=== PATIENT | male | born 1955 | race Asian ===

== ENCOUNTER → 2017-08-17 | Outpatient (CLI) | payer OTHER | END | disposition home or self-care (01) | LOC: RADPV 08:33 | PROVIDERS: ATTEND Legal Medicine | DX: R13.10 Dysphagia, unspecified (principal) | CPT/HCPCS: 74230; 92611 ==

== ENCOUNTER 2017-09-07 14:47 | Inpatient (IN) | payer MEDICARE, MEDICAID ==
[~2017-09-07] VITALS: Ht 160 cm; Wt 49.4 kg
[2017-09-07] VITALS (10 sets, daily range): BP systolic 112–137; BP diastolic 51–65
[2017-09-07] MEDS ORDERED: AMLO-511 PO (15:15)
[2017-09-07] MEDS ORDERED: ATOR40TA28 PO (15:15)
[2017-09-07] MEDS ORDERED: CARV12 PO (15:15)
[2017-09-07] MEDS ORDERED: NITROGLYCERIN 2% (1 GM=INCH) PACKET TP ONE (15:15)
[2017-09-07] MEDS ORDERED: ALLO100T PO (15:15)
[2017-09-07 15:17] LABS: ABG A-A DIFF O2 351.5 mmHg (10-20.0); ABG BASE EXCESS 6.4 mmol/L (-2.0-3.0); ABG CARBOXYHEMOGLOBIN 2.9 % (0.0-1.5); ABG METHEMOGLOBIN 1.9 % (0.0-1.5); ABG OXYGEN CONTENT 6.1 mL/dL (15.0-23.0); ABG OXYGEN SATURATION 91.8 % (95.0-98.0); ABG OXYHEMOGLOBIN 87.4 % (94.0-100.0); ABG PCO2 64 mmHg (35-45); ABG PH 7.322 (7.35-7.450); PO2, ARTERIAL BG 78.6 mmHg (79.0-87.0); SOURCE, BLOOD GAS ARTERIAL; TEMPERATURE, FAHRENHEIT, BG 98.6 FAHREN (96.0-98.6)
[2017-09-07 15:18] LABS: ABG TOTAL HEMOGLOBIN 4.8 G/dL (12.0-18.0); O2 DEVICE,BLOOD GAS BIPAP (ROOM AIR); SITE, BLOOD GAS RT RADIAL
[2017-09-07 15:28] LABS: GLUCOSE,POINT OF CARE 401 MG/DL (70-110)
[2017-09-07 15:30] LABS: BASOPHILS % (AUTO) 0.5 % (0.0-2.0); EOSINOPHILS % (AUTO) 0.9 % (1.0-6.0); LYMPHOCYTES # (AUTO) 2.1 K/uL (1.0-4.8); LYMPHOCYTES % (AUTO) 7.1 % (22.0-44.0); MEAN CORPUSCULAR HGB CONC 30.9 G/dL (31.0-37.0); MEAN CORPUSCULAR VOLUME 87 fL (80-100); MONOCYTES # (AUTO) 2.2 K/uL (0.1-1.0); MONOCYTES % (AUTO) 7.6 % (2.0-9.0); NEUTROPHILS # (AUTO) 24.6 K/uL (1.8-7.7); NEUTROPHILS % (AUTO) 83.9 % (40.0-70.0); PLATELET COUNT (AUTO) 245 K/uL (150-450); RED BLOOD CELL COUNT(AUTO) 1.56 MIL/uL (4.50-5.90); RED CELL DISTRIBUTION WIDTH 18.8 % (11.5-14.5)
[2017-09-07 15:31] LABS: INR 1.1 (0.9-1.1); PROTHROMBIN TIME 11.6 SEC (9.4-11.6)
[2017-09-07 15:35] LABS: HEMATOCRIT 13.6 % (41-53); HEMOGLOBIN 4.2 g/dL (13.5-17.5)
[2017-09-07 15:44] LABS: B-TYPE NATRIURETIC PEPTIDE 567 pg/mL (0-100)
[2017-09-07 15:57] LABS: BAND NEUTROPHILS % (MANUAL) 13 % (0-5); EOSINOPHILS % (MANUAL) 1 % (1-6); LYMPHOCYTES % (MANUAL) 10 % (22-44); MONOCYTES % (MANUAL) 7 % (2-9); SEGMENTED NEUTROPHILS % 69 % (40-70); WBC MORPHOLOGY TOXIC VACUOLATION
[2017-09-07 15:58] LABS: PLATELET MORPHOLOGY COMMENT LARGE PLTS PRESENT
[2017-09-07 16:04] LABS: ALANINE AMINOTRANSFERASE 56 U/L (12-78); ALBUMIN 1.5 g/dL (3.4-5.0); ALKALINE PHOSPHATASE 155 U/L (46-116); ANION GAP 6 mmol/L (8-16); ASPARTATE AMINOTRANSFERASE 58 U/L (15-37); BILIRUBIN,TOTAL 0.2 mg/dL (0.1-1.0); CALCIUM, TOTAL 7.5 mg/dL (8.8-10.5); CARBON DIOXIDE 31 mmol/L (22-29); CHLORIDE 99 mmol/L (98-107); CREATINE KINASE MB 0.7 ng/mL (0-5); CREATINE KINASE, TOTAL 75 U/L (39-308); CREATININE 2.38 mg/dL (0.60-1.30); GLOMERULAR FILTR. RATE CALC 28 mL/min (>60); POTASSIUM 4.7 mmol/L (3.5-5.1); SODIUM SERUM 136 mmol/L (136-145); TOTAL PROTEIN, SERUM 5.8 g/dL (6.4-8.2); UREA NITROGEN, BLOOD 83 mg/dL (7-18)
[2017-09-07 16:06] LABS: GLUCOSE,RANDOM 458 mg/dL (70-110)
[2017-09-07 16:28] LABS: LACTIC ACID 2.3 mmol/L (0.4-2.0)
[2017-09-07] MEDS ORDERED: NOREPINEPHRINE 4 MG/D5%-WATER 250 ML IV ONE (16:31)
[2017-09-07] MEDS ORDERED: PROPOFOL 1000 MG/ISO-OSM 100 ML IV ONE (16:31)
[2017-09-07] MEDS ORDERED: VANCOMYCIN HCL 1 GM/D5% WATER 200 ML IV ONE (16:45)
[2017-09-07] MEDS ORDERED: PIPERACILLIN/TAZO 3.375 GM/D5W 50 ML IV ONE (16:45)
[2017-09-07] MEDS ORDERED: SODIUM CHLORIDE 0.9% 1,000 ML IV ONE (16:45)
[2017-09-07] MEDS ORDERED: NOREPINEPHRINE 4 MG/D5%-WATER 250 ML IV PRN (17:12)
[2017-09-07] MEDS: PROPOFOL 1000 MG/ISO-OSM 100 ML IV PRN ×2 (17:19→22:46)
[2017-09-07] MEDS ORDERED: ETOMIDATE 2 MG/ML 10 ML VIAL IVP ONE (17:40)
[2017-09-07] MEDS ORDERED: SUCCINYLCHOLINE CHLORIDE 20 MG/ML 10 ML VIAL IVP ONE (17:40)
[2017-09-07 17:58] LABS: ABG A-A DIFF O2 567.8 mmHg (10-20.0); ABG CARBOXYHEMOGLOBIN 2.5 % (0.0-1.5); ABG HCO3 30.4 mmol/L (22.0-26.0); ABG METHEMOGLOBIN 1.6 % (0.0-1.5); ABG OXYGEN CONTENT 5.5 mL/dL (15.0-23.0); ABG OXYGEN SATURATION 97.3 % (95.0-98.0); ABG OXYHEMOGLOBIN 93.3 % (94.0-100.0); ABG PCO2 46 mmHg (35-45); ABG PH 7.451 (7.35-7.450); PO2, ARTERIAL BG 99.7 mmHg (79.0-87.0); SOURCE, BLOOD GAS ARTERIAL; TEMPERATURE, FAHRENHEIT, BG 98.6 FAHREN (96.0-98.6)
[2017-09-07 18:03] LABS: O2 DEVICE,BLOOD GAS VENTILATOR (ROOM AIR); PEEP,BG 5 cm H2O; SITE, BLOOD GAS RT RADIAL; VT, ABG 450 ml
[2017-09-07] MEDS ORDERED: PANTOPRAZOLE SODIUM 80 MG in SODIUM CHLORIDE 0.9% 100 ML IV SCH (18:45)
[2017-09-07] MEDS ORDERED: PANTOPRAZOLE SODIUM 40 MG/VIAL IVP ONE (18:45)
[2017-09-07] MEDS ORDERED: MAGNESIUM HYDROXIDE SUSPENSION 30 ML UDCUP PO PRN (19:00)
[2017-09-07] MEDS ORDERED: ACETAMINOPHEN 325 MG TABLET PO PRN (19:00)
[2017-09-07] MEDS ORDERED: BISACODYL 10 MG RECTAL RECTAL SUPPOSITORY PR PRN (19:00)
[2017-09-07] MEDS ORDERED: ONDANSETRON HCL 4 MG/2 ML VIAL IVP PRN (19:00)
[2017-09-07] MEDS ORDERED: 0.9% SODIUM CHLORIDE 10 ML SYRINGE IVP PRN (19:00)
[2017-09-07] MEDS ORDERED: POVIDONE-IODINE 10% 120 ML SOLUTION TP ONE (19:14)
[2017-09-07] MEDS ORDERED: VANCOMYCIN HCL 1 GM/D5% WATER 200 ML IV PRN (20:15)
[2017-09-07 20:24] LABS: GLUCOSE,POINT OF CARE 400 MG/DL (70-110)
[2017-09-07] MEDS ORDERED: INSULIN REGULAR, HUMAN 100 UNITS/ML IVP ONE (20:30)
[2017-09-07 23:55] LABS: APPEARANCE,URINE CLOUDY (CLEAR); BILIRUBIN,URINE NEGATIVE (NEGATIVE); GLUCOSE, URINE (UA) 500 mg/dL (NEGATIVE); KETONES,URINE NEGATIVE (NEGATIVE); LEUKOCYTE ESTERASE ,URINE NEGATIVE (NEGATIVE); NITRATE,URINE NEGATIVE (NEGATIVE); OCCULT BLOOD,URINE SMALL (NEGATIVE); PH,URINE 5.5 (5.0-8.0); PROTEIN,URINE SEE CONFIRM (NEGATIVE); UROBILINOGEN,URINE 0.2 mg/dL (<=1.0)
[2017-09-08] VITALS (17 sets, daily range): BP systolic 93–158; BP diastolic 43–75
[2017-09-08 00:09] LABS: SULFOSALICYLIC ACID,URINE 2+ (Negative)
[2017-09-08 00:10] LABS: AMORPHOUS SEDIMENT,UR Few /LPF (None Seen); BACTERIA,URINE Rare /HPF (None Seen)
[2017-09-08] MEDS ORDERED: NOREPINEPHRINE 4 MG/D5%-WATER 250 ML IV PRN (00:12)
[2017-09-08] MEDS ORDERED: SODIUM CHLORIDE 0.9% 250 ML IV ONE (01:22)
[2017-09-08] MEDS: PIPERACILLIN SODIUM/TAZOBACTAM 2.25 GM in DEXTROSE 5%-WATER 50 ML IV SCH ×2 (02:08→14:44)
[2017-09-08] MEDS: PROPOFOL 1000 MG/ISO-OSM 100 ML IV PRN ×3 (03:33→14:53)
[2017-09-08 06:52] LABS: BASOPHILS % (AUTO) 1.1 % (0.0-2.0); EOSINOPHILS % (AUTO) 1.6 % (1.0-6.0); LYMPHOCYTES # (AUTO) 0.4 K/uL (1.0-4.8); MEAN CORPUSCULAR HEMOGLOBIN 28.9 pg (26.0-34.0); MEAN CORPUSCULAR HGB CONC 34.4 G/dL (31.0-37.0); MEAN CORPUSCULAR VOLUME 84 fL (80-100); MONOCYTES # (AUTO) 0.9 K/uL (0.1-1.0); MONOCYTES % (AUTO) 7.2 % (2.0-9.0); NEUTROPHILS # (AUTO) 10.8 K/uL (1.8-7.7); PLATELET COUNT (AUTO) 122 K/uL (150-450); RED BLOOD CELL COUNT(AUTO) 2.41 MIL/uL (4.50-5.90); RED CELL DISTRIBUTION WIDTH 15.1 % (11.5-14.5)
[2017-09-08 06:55] LABS: NEUTROPHILS % (AUTO) 87.1 % (40.0-70.0)
[2017-09-08 06:56] LABS: PLATELET MORPHOLOGY COMMENT LARGE PLTS PRESENT
[2017-09-08 07:05] LABS: LACTIC ACID 1.4 mmol/L (0.4-2.0)
[2017-09-08 07:18] LABS: ALANINE AMINOTRANSFERASE 43 U/L (12-78); ALBUMIN 1.3 g/dL (3.4-5.0); ALKALINE PHOSPHATASE 95 U/L (46-116); ANION GAP 9 mmol/L (8-16); ASPARTATE AMINOTRANSFERASE 46 U/L (15-37); BILIRUBIN,TOTAL 0.4 mg/dL (0.1-1.0); CALCIUM, TOTAL 7.5 mg/dL (8.8-10.5); CARBON DIOXIDE 28 mmol/L (22-29); CHLORIDE 100 mmol/L (98-107); CREATINE KINASE, TOTAL 63 U/L (39-308); CREATININE 2.56 mg/dL (0.60-1.30); FREE T4 (FREE THYROXINE) 1.02 ng/dL (0.76-1.46); GLOMERULAR FILTR. RATE CALC 26 mL/min (>60); GLUCOSE,RANDOM 271 mg/dL (70-110); HDL CHOLESTEROL 18 mg/dL (40-60); POTASSIUM 4.4 mmol/L (3.5-5.1); SODIUM SERUM 137 mmol/L (136-145); THYROID STIMULATING HORMONE 4.19 uIU/mL (0.36-3.74); TOTAL PROTEIN, SERUM 4.9 g/dL (6.4-8.2); TRIGLYCERIDES 121 mg/dL (15-150); UREA NITROGEN, BLOOD 91 mg/dL (7-18)
[2017-09-08 07:32] LABS: CHOL/HDL RATIO 2.8 (4.2-7.3); CHOLESTEROL 51 mg/dL (131-200); LDL CHOL (CALC.) 9 mg/dL (0-130)
[2017-09-08 07:42] LABS: HEMOGLOBIN A1C 5.6 % (4.5-6.2)
[2017-09-08] MEDS ORDERED: PANTOPRAZOLE SODIUM 40 MG/VIAL IVP SCH (09:00)
[2017-09-08] MEDS: PANTOPRAZOLE SODIUM 80 MG in SODIUM CHLORIDE 0.9% 100 ML IV SCH ×2 (09:25→18:01)
[2017-09-08] MEDS: VITAMIN B COMP/VIT C/FOLIC ACID CAPSULE PO SCH (09:25)
[2017-09-08 10:14] LABS: FOLATE SERUM 9.4 ng/mL (5.4-)
[2017-09-08] MEDS ORDERED: SODIUM CHLORIDE 0.9% 2,000 ML IV ONE (10:21)
[2017-09-08 11:12] LABS: HEMOGLOBIN 7.4 g/dL (13.5-17.5)
[2017-09-08] MEDS ORDERED: MANNITOL 25%-12.5 GM/50 ML VIAL IVP PRN (11:30)
[2017-09-08] MEDS ORDERED: DEXTROSE 50%-WATER 25 GM/50 ML SYRINGE IVP PRN (12:15)
[2017-09-08 15:42] LABS: ABG A-A DIFF O2 262.9 mmHg (10-20.0); ABG BASE EXCESS 9.3 mmol/L (-2.0-3.0); ABG CARBOXYHEMOGLOBIN 0.9 % (0.0-1.5); ABG HCO3 32.5 mmol/L (22.0-26.0); ABG METHEMOGLOBIN 0.1 % (0.0-1.5); ABG OXYGEN CONTENT 11.5 mL/dL (15.0-23.0); ABG OXYGEN SATURATION 99.2 % (95.0-98.0); ABG OXYHEMOGLOBIN 98.2 % (94.0-100.0); ABG PCO2 32 mmHg (35-45); ABG TOTAL HEMOGLOBIN 8.1 G/dL (12.0-18.0); PO2, ARTERIAL BG 129.5 mmHg (79.0-87.0); SOURCE, BLOOD GAS ARTERIAL; TEMPERATURE, FAHRENHEIT, BG 98.6 FAHREN (96.0-98.6)
[2017-09-08 15:43] LABS: ABG PH 7.599 (7.35-7.450); O2 DEVICE,BLOOD GAS VENTILATOR (ROOM AIR); PEEP,BG 5 cm H2O; SITE, BLOOD GAS RT RADIAL; VT, ABG 450 ml
[2017-09-08 17:23] LABS: GLUCOSE,POINT OF CARE 104 MG/DL (70-110)
[2017-09-08] MEDS ORDERED: MANNITOL 25%-12.5 GM/50 ML VIAL IVP ONE (17:50)
[2017-09-08 18:44] LABS: HEMOGLOBIN 7.2 g/dL (13.5-17.5)
[2017-09-08 18:49] LABS: HEMATOCRIT 20.4 % (41-53)
[2017-09-09] VITALS: BP 156/71
[2017-09-09] MEDS: PIPERACILLIN SODIUM/TAZOBACTAM 2.25 GM in DEXTROSE 5%-WATER 50 ML IV SCH ×4 (00:28→23:09)
[2017-09-09] MEDS: PROPOFOL 1000 MG/ISO-OSM 100 ML IV PRN ×3 (02:44→19:59)
[2017-09-09 03:05] LABS: BASOPHILS % (AUTO) 1.2 % (0.0-2.0); EOSINOPHILS % (AUTO) 4.5 % (1.0-6.0); HEMOGLOBIN 7.8 g/dL (13.5-17.5); LYMPHOCYTES # (AUTO) 0.4 K/uL (1.0-4.8); LYMPHOCYTES % (AUTO) 5.4 % (22.0-44.0); MEAN CORPUSCULAR HEMOGLOBIN 29.3 pg (26.0-34.0); MEAN CORPUSCULAR HGB CONC 35.2 G/dL (31.0-37.0); MEAN CORPUSCULAR VOLUME 83 fL (80-100); MONOCYTES # (AUTO) 0.7 K/uL (0.1-1.0); MONOCYTES % (AUTO) 8.3 % (2.0-9.0); NEUTROPHILS # (AUTO) 6.5 K/uL (1.8-7.7); NEUTROPHILS % (AUTO) 80.6 % (40.0-70.0); PLATELET COUNT (AUTO) 132 K/uL (150-450); RED BLOOD CELL COUNT(AUTO) 2.64 MIL/uL (4.50-5.90); RED CELL DISTRIBUTION WIDTH 15.6 % (11.5-14.5)
[2017-09-09 03:17] LABS: ANION GAP 5 mmol/L (8-16); CALCIUM, TOTAL 7.8 mg/dL (8.8-10.5); CARBON DIOXIDE 32 mmol/L (22-29); CHLORIDE 101 mmol/L (98-107); CREATINE KINASE, TOTAL 51 U/L (39-308); CREATININE 1.45 mg/dL (0.60-1.30); GLOMERULAR FILTR. RATE CALC 50 mL/min (>60); GLUCOSE,RANDOM 97 mg/dL (70-110); POTASSIUM 3.5 mmol/L (3.5-5.1); SODIUM SERUM 138 mmol/L (136-145); UREA NITROGEN, BLOOD 35 mg/dL (7-18); VANCOMYCIN,RANDOM 10.9 mcg/mL (25.0-50.0)
[2017-09-09] MEDS ORDERED: SODIUM CHLORIDE 0.9% 100 ML ONE (03:58)
[2017-09-09 04:00] VITALS: BP_SYST 166; BP_DIAS 59; BP_DIAS 71
[2017-09-09] MEDS: PANTOPRAZOLE SODIUM 80 MG in SODIUM CHLORIDE 0.9% 100 ML IV SCH ×2 (04:49→15:27)
[2017-09-09 06:47] LABS: GLUCOSE,POINT OF CARE 96 MG/DL (70-110)
[2017-09-09 06:48] LABS: GLUCOSE,POINT OF CARE 94 MG/DL (70-110)
[2017-09-09] MEDS ORDERED: SODIUM CHLORIDE 0.9% 1,000 ML IV ONE (07:36)
[2017-09-09 08:00] VITALS: BP 162/66
[2017-09-09] MEDS ORDERED: VANCOMYCIN HCL 750 MG in DEXTROSE 5%-WATER 250 ML IV ONE (08:00)
[2017-09-09] MEDS: VITAMIN B COMP/VIT C/FOLIC ACID CAPSULE PO SCH (09:02)
[2017-09-09 09:49] LABS: ABG A-A DIFF O2 49.8 mmHg (10-20.0); ABG BASE EXCESS 5.1 mmol/L (-2.0-3.0); ABG CARBOXYHEMOGLOBIN 0.3 % (0.0-1.5); ABG HCO3 28.9 mmol/L (22.0-26.0); ABG METHEMOGLOBIN 0.2 % (0.0-1.5); ABG OXYGEN CONTENT 12.3 mL/dL (15.0-23.0); ABG OXYGEN SATURATION 99.5 % (95.0-98.0); ABG PCO2 33 mmHg (35-45); ABG PH 7.537 (7.35-7.450); ABG TOTAL HEMOGLOBIN 8.5 G/dL (12.0-18.0); PO2, ARTERIAL BG 197.7 mmHg (79.0-87.0); SOURCE, BLOOD GAS ARTERIAL; TEMPERATURE, FAHRENHEIT, BG 97.5 FAHREN (96.0-98.6)
[2017-09-09 09:50] LABS: O2 DEVICE,BLOOD GAS VENTILATOR (ROOM AIR); PEEP,BG 5 cm H2O; SITE, BLOOD GAS RT RADIAL; VT, ABG 450 ml
[2017-09-09 11:53] LABS: GLUCOSE,POINT OF CARE 106 MG/DL (70-110)
[2017-09-09 12:00] VITALS: BP 165/61
[2017-09-09] MEDS ORDERED: PROPOFOL 1% 20 ML VIAL IVP ONE (12:00)
[2017-09-09] MEDS ORDERED: LIDOCAINE HCL/PF 2% 5 ML VIAL INJ ONE (12:00)
[2017-09-09] MEDS: HydrALAZINE HCL 20 MG/ML VIAL IVP PRN (15:28)
[2017-09-09 16:00] VITALS: BP 109/49
[2017-09-09 18:27] LABS: HEMATOCRIT 21.6 % (41-53); HEMOGLOBIN 7.6 g/dL (13.5-17.5)
[2017-09-09 20:00] VITALS: BP 105/55
[2017-09-09 20:02] LABS: GLUCOSE,POINT OF CARE 109 MG/DL (70-110)
[2017-09-09] MEDS: INSULIN REGULAR, HUMAN 100 UNITS/ML SQ PRN (23:28)
[2017-09-09] MEDS ORDERED: DEXTROSE 5%-WATER 250 ML IV ONE (23:33)
[2017-09-10] VITALS: BP 126/59
[2017-09-10] MEDS: PANTOPRAZOLE SODIUM 80 MG in SODIUM CHLORIDE 0.9% 100 ML IV SCH ×3 (00:41→21:09)
[2017-09-10] MEDS: PROPOFOL 1000 MG/ISO-OSM 100 ML IV PRN ×2 (03:48→08:37)
[2017-09-10 04:00] VITALS: BP 108/60
[2017-09-10] MEDS: INSULIN REGULAR, HUMAN 100 UNITS/ML SQ PRN (05:45)
[2017-09-10 06:05] LABS: BASOPHILS % (AUTO) 0.8 % (0.0-2.0); EOSINOPHILS % (AUTO) 3.5 % (1.0-6.0); HEMOGLOBIN 7.4 g/dL (13.5-17.5); LYMPHOCYTES # (AUTO) 0.3 K/uL (1.0-4.8); LYMPHOCYTES % (AUTO) 5.2 % (22.0-44.0); MEAN CORPUSCULAR HEMOGLOBIN 30.4 pg (26.0-34.0); MEAN CORPUSCULAR HGB CONC 35.7 G/dL (31.0-37.0); MEAN CORPUSCULAR VOLUME 85 fL (80-100); MONOCYTES # (AUTO) 0.4 K/uL (0.1-1.0); MONOCYTES % (AUTO) 6.5 % (2.0-9.0); NEUTROPHILS # (AUTO) 5.1 K/uL (1.8-7.7); PLATELET COUNT (AUTO) 139 K/uL (150-450); RED BLOOD CELL COUNT(AUTO) 2.43 MIL/uL (4.50-5.90)
[2017-09-10 06:18] LABS: CALCIUM, TOTAL 7.5 mg/dL (8.8-10.5); CREATININE 2.1 mg/dL (0.60-1.30); POTASSIUM 3.7 mmol/L (3.5-5.1)
[2017-09-10 06:22] LABS: GLUCOSE,POINT OF CARE 79 MG/DL (70-110)
[2017-09-10 06:22] LABS: GLUCOSE,POINT OF CARE 76 MG/DL (70-110)
[2017-09-10 06:22] LABS: GLUCOSE,POINT OF CARE 77 MG/DL (70-110)
[2017-09-10 08:00] VITALS: BP 116/60
[2017-09-10] MEDS: PIPERACILLIN SODIUM/TAZOBACTAM 2.25 GM in DEXTROSE 5%-WATER 50 ML IV SCH ×3 (08:06→22:50)
[2017-09-10] MEDS: VITAMIN B COMP/VIT C/FOLIC ACID CAPSULE PO SCH (08:35)
[2017-09-10] MEDS: LORazepam 2 MG/ML VIAL IVP PRN (14:33)
[2017-09-10 15:48] LABS: GLUCOSE,POINT OF CARE 69 MG/DL (70-110)
[2017-09-10 15:48] LABS: GLUCOSE,POINT OF CARE 151 MG/DL (70-110)
[2017-09-10 18:27] LABS: GLUCOSE,POINT OF CARE 115 MG/DL (70-110)
[2017-09-10 19:50] LABS: SOURCE, BLOOD GAS ARTERIAL; TEMPERATURE, FAHRENHEIT, BG 98.6 FAHREN (96.0-98.6)
[2017-09-10 19:53] LABS: ABG A-A DIFF O2 74.7 mmHg (10-20.0); ABG BASE EXCESS 5.7 mmol/L (-2.0-3.0); ABG CARBOXYHEMOGLOBIN 0.9 % (0.0-1.5); ABG HCO3 29.3 mmol/L (22.0-26.0); ABG METHEMOGLOBIN 0.4 % (0.0-1.5); ABG OXYGEN CONTENT 11.6 mL/dL (15.0-23.0); ABG OXYGEN SATURATION 99.1 % (95.0-98.0); ABG OXYHEMOGLOBIN 97.8 % (94.0-100.0); ABG PCO2 37 mmHg (35-45); ABG PH 7.512 (7.35-7.450); ABG TOTAL HEMOGLOBIN 8.2 G/dL (12.0-18.0); PO2, ARTERIAL BG 132.3 mmHg (79.0-87.0)
[2017-09-10 19:54] LABS: O2 DEVICE,BLOOD GAS VENTILATOR (ROOM AIR); SITE, BLOOD GAS RT RADIAL; VENT MODE, BG SPONTANEOUS (ROOM AIR)
[2017-09-10 19:55] LABS: PEEP,BG 5 cm H2O; PRESSURE SUPPORT, BG 8 cm H2O; SPONTANEOUS VT, BG 300 ml
[2017-09-10 20:00] VITALS: BP 157/74
[2017-09-10] MEDS: HydrALAZINE HCL 20 MG/ML VIAL IVP PRN (22:22)
[2017-09-11] VITALS: BP 149/68
[2017-09-11] MEDS: INSULIN REGULAR, HUMAN 100 UNITS/ML SQ PRN ×2 (00:18→05:59)
[2017-09-11 00:57] LABS: GLUCOSE,POINT OF CARE 145 MG/DL (70-110)
[2017-09-11 04:00] VITALS: BP 147/70
[2017-09-11] MEDS: PROPOFOL 1000 MG/ISO-OSM 100 ML IV PRN ×3 (04:23→20:20)
[2017-09-11 05:21] LABS: CALCIUM, TOTAL 7.6 mg/dL (8.8-10.5); CREATININE 1.61 mg/dL (0.60-1.30); POTASSIUM 3.3 mmol/L (3.5-5.1); VANCOMYCIN,RANDOM 16.6 mcg/mL (25.0-50.0)
[2017-09-11 05:23] LABS: BASOPHILS % (AUTO) 0.6 % (0.0-2.0); EOSINOPHILS % (AUTO) 4.1 % (1.0-6.0); HEMATOCRIT 22.5 % (41-53); HEMOGLOBIN 7.8 g/dL (13.5-17.5); LYMPHOCYTES # (AUTO) 0.3 K/uL (1.0-4.8); LYMPHOCYTES % (AUTO) 4.1 % (22.0-44.0); MEAN CORPUSCULAR HEMOGLOBIN 29.8 pg (26.0-34.0); MEAN CORPUSCULAR HGB CONC 34.9 G/dL (31.0-37.0); MEAN CORPUSCULAR VOLUME 85 fL (80-100); MONOCYTES # (AUTO) 0.5 K/uL (0.1-1.0); MONOCYTES % (AUTO) 6.1 % (2.0-9.0); NEUTROPHILS # (AUTO) 6.9 K/uL (1.8-7.7); NEUTROPHILS % (AUTO) 85.1 % (40.0-70.0); PLATELET COUNT (AUTO) 157 K/uL (150-450); RED BLOOD CELL COUNT(AUTO) 2.63 MIL/uL (4.50-5.90); RED CELL DISTRIBUTION WIDTH 16.2 % (11.5-14.5)
[2017-09-11] MEDS: PANTOPRAZOLE SODIUM 80 MG in SODIUM CHLORIDE 0.9% 100 ML IV SCH ×2 (06:17→15:23)
[2017-09-11 08:00] VITALS: BP 111/54
[2017-09-11] MEDS ORDERED: POTASSIUM CHLORIDE 10% 40 MEQ/30 ML LIQUID UDCUP PEG ONE ×2 (08:15→08:30)
[2017-09-11 08:28] LABS: GLUCOSE,POINT OF CARE 163 MG/DL (70-110)
[2017-09-11] MEDS: VITAMIN B COMP/VIT C/FOLIC ACID CAPSULE PO SCH (08:43)
[2017-09-11] MEDS: PIPERACILLIN SODIUM/TAZOBACTAM 2.25 GM in DEXTROSE 5%-WATER 50 ML IV SCH ×2 (08:43→15:23)
[2017-09-11] MEDS: EPOETIN ALFA 10,000 UNITS/ML VIAL SQ SCH (09:15)
[2017-09-11 12:00] VITALS: BP 169/92
[2017-09-11 12:32] LABS: GLUCOSE,POINT OF CARE 126 MG/DL (70-110)
[2017-09-11] MEDS ORDERED: SODIUM CHLORIDE 0.9% 250 ML IV ONE (12:32)
[2017-09-11] MEDS ORDERED: VANCOMYCIN HCL 1 GM/D5% WATER 200 ML IV ONE (13:00)
[2017-09-11 13:22] LABS: C.DIFF GDH ANTIGEN, Stool Negative (Negative); C.DIFF TOXINS A&B, Stool Negative (Negative)
[2017-09-11 16:00] VITALS: BP 132/80
[2017-09-11 17:29] LABS: CALCIUM, TOTAL 7.7 mg/dL (8.8-10.5); CREATININE 1.91 mg/dL (0.60-1.30); POTASSIUM 3.5 mmol/L (3.5-5.1)
[2017-09-11 20:00] VITALS: BP 144/66
[2017-09-11 21:18] LABS: GLUCOSE,POINT OF CARE 136 MG/DL (70-110)
[2017-09-12] VITALS: BP 124/60
[2017-09-12 00:07] LABS: GLUCOSE,POINT OF CARE 147 MG/DL (70-110)
[2017-09-12] MEDS: INSULIN REGULAR, HUMAN 100 UNITS/ML SQ PRN (00:15)
[2017-09-12] MEDS: PANTOPRAZOLE SODIUM 80 MG in SODIUM CHLORIDE 0.9% 100 ML IV SCH ×3 (01:10→23:16)
[2017-09-12] MEDS: AMPICILLIN SODIUM/SULBACTAM NA 3 GM in SODIUM CHLORIDE 0.9% 100 ML IV SCH ×2 (02:39→14:24)
[2017-09-12 04:00] VITALS: BP 133/65
[2017-09-12 04:52] LABS: GLUCOSE,POINT OF CARE 101 MG/DL (70-110)
[2017-09-12 05:25] LABS: BASOPHILS % (AUTO) 0.6 % (0.0-2.0); EOSINOPHILS % (AUTO) 6.8 % (1.0-6.0); HEMATOCRIT 21.6 % (41-53); HEMOGLOBIN 7.5 g/dL (13.5-17.5); LYMPHOCYTES # (AUTO) 0.2 K/uL (1.0-4.8); LYMPHOCYTES % (AUTO) 2.8 % (22.0-44.0); MEAN CORPUSCULAR HEMOGLOBIN 29.4 pg (26.0-34.0); MEAN CORPUSCULAR HGB CONC 34.7 G/dL (31.0-37.0); MEAN CORPUSCULAR VOLUME 85 fL (80-100); MONOCYTES # (AUTO) 0.4 K/uL (0.1-1.0); MONOCYTES % (AUTO) 5.3 % (2.0-9.0); NEUTROPHILS # (AUTO) 6.8 K/uL (1.8-7.7); NEUTROPHILS % (AUTO) 84.5 % (40.0-70.0); PLATELET COUNT (AUTO) 157 K/uL (150-450); RED BLOOD CELL COUNT(AUTO) 2.55 MIL/uL (4.50-5.90); RED CELL DISTRIBUTION WIDTH 15.9 % (11.5-14.5)
[2017-09-12 05:34] LABS: CALCIUM, TOTAL 7.7 mg/dL (8.8-10.5); CREATININE 2.19 mg/dL (0.60-1.30); MAGNESIUM 1.5 mg/dL (1.80-2.40); PHOSPHORUS 4.5 mg/dL (2.5-4.9); POTASSIUM 3.4 mmol/L (3.5-5.1)
[2017-09-12 06:03] LABS: % IRON SATURATION 19.7 % (30-44)
[2017-09-12] MEDS: PROPOFOL 1000 MG/ISO-OSM 100 ML IV PRN ×3 (06:20→23:20)
[2017-09-12] MEDS ORDERED: MAGNESIUM SULFATE 2 GM in DEXTROSE 5%-WATER 50 ML IV ONE ×2 (07:00→09:30)
[2017-09-12 08:00] VITALS: BP 136/65
[2017-09-12] MEDS: VITAMIN B COMP/VIT C/FOLIC ACID CAPSULE PO SCH (08:39)
[2017-09-12] MEDS ORDERED: POTASSIUM CHLORIDE 10 MEQ ER TABLET PO ONE (09:30)
[2017-09-12] MEDS: LORazepam 2 MG/ML VIAL IVP PRN (09:56)
[2017-09-12] MEDS: SOD FERRIC GLUC COMPLX/SUCROSE 125 MG in SODIUM CHLORIDE 0.9% 100 ML IV SCH (11:18)
[2017-09-12 12:00] VITALS: BP 105/75
[2017-09-12 16:00] VITALS: BP 129/60
[2017-09-12 20:00] VITALS: BP 137/59
[2017-09-13] VITALS: BP 113/57
[2017-09-13] MEDS: AMPICILLIN SODIUM/SULBACTAM NA 3 GM in SODIUM CHLORIDE 0.9% 100 ML IV SCH ×2 (02:50→14:35)
[2017-09-13 04:00] VITALS: BP 155/75
[2017-09-13 04:07] LABS: GLUCOSE,POINT OF CARE 97 MG/DL (70-110)
[2017-09-13 04:08] LABS: GLUCOSE,POINT OF CARE 138 MG/DL (70-110)
[2017-09-13 04:08] LABS: GLUCOSE,POINT OF CARE 129 MG/DL (70-110)
[2017-09-13 05:26] LABS: BASOPHILS % (AUTO) 0.5 % (0.0-2.0); EOSINOPHILS % (AUTO) 7.2 % (1.0-6.0); HEMATOCRIT 21.8 % (41-53); HEMOGLOBIN 7.6 g/dL (13.5-17.5); LYMPHOCYTES # (AUTO) 0.3 K/uL (1.0-4.8); LYMPHOCYTES % (AUTO) 3.9 % (22.0-44.0); MEAN CORPUSCULAR HEMOGLOBIN 29.4 pg (26.0-34.0); MEAN CORPUSCULAR HGB CONC 34.7 G/dL (31.0-37.0); MEAN CORPUSCULAR VOLUME 85 fL (80-100); MONOCYTES # (AUTO) 0.5 K/uL (0.1-1.0); MONOCYTES % (AUTO) 6.7 % (2.0-9.0); NEUTROPHILS # (AUTO) 6.7 K/uL (1.8-7.7); NEUTROPHILS % (AUTO) 81.7 % (40.0-70.0); PLATELET COUNT (AUTO) 165 K/uL (150-450); RED BLOOD CELL COUNT(AUTO) 2.58 MIL/uL (4.50-5.90)
[2017-09-13 05:38] LABS: GLUCOSE,POINT OF CARE 124 MG/DL (70-110)
[2017-09-13 05:49] LABS: ALBUMIN 1.2 g/dL (3.4-5.0); BILIRUBIN,TOTAL 0.3 mg/dL (0.1-1.0); CALCIUM, TOTAL 7.7 mg/dL (8.8-10.5); CREATININE 2.66 mg/dL (0.60-1.30); POTASSIUM 3.5 mmol/L (3.5-5.1); TOTAL PROTEIN, SERUM 5.8 g/dL (6.4-8.2)
[2017-09-13 06:59] LABS: MAGNESIUM 2.1 mg/dL (1.80-2.40); PHOSPHORUS 5.3 mg/dL (2.5-4.9)
[2017-09-13] MEDS: PROPOFOL 1000 MG/ISO-OSM 100 ML IV PRN (07:33)
[2017-09-13 08:00] VITALS: BP 138/70
[2017-09-13 08:41] LABS: ABG A-A DIFF O2 26.1 mmHg (10-20.0); ABG BASE EXCESS -0.2 mmol/L (-2.0-3.0); ABG CARBOXYHEMOGLOBIN 0.9 % (0.0-1.5); ABG HCO3 24.6 mmol/L (22.0-26.0); ABG METHEMOGLOBIN 0.4 % (0.0-1.5); ABG OXYGEN SATURATION 99.6 % (95.0-98.0); ABG OXYHEMOGLOBIN 98.3 % (94.0-100.0); ABG PCO2 29 mmHg (35-45); ABG PH 7.511 (7.35-7.450); ABG TOTAL HEMOGLOBIN 8.4 G/dL (12.0-18.0); PO2, ARTERIAL BG 153.6 mmHg (79.0-87.0); SOURCE, BLOOD GAS ARTERIAL; TEMPERATURE, FAHRENHEIT, BG 98.6 FAHREN (96.0-98.6)
[2017-09-13 08:44] LABS: O2 DEVICE,BLOOD GAS VENTILATOR (ROOM AIR); SITE, BLOOD GAS RT RADIAL; VT, ABG 400 ml
[2017-09-13 08:45] LABS: PEEP,BG 5 cm H2O
[2017-09-13] MEDS ORDERED: SODIUM CHLORIDE 0.9% 2,000 ML IV ONE (09:14)
[2017-09-13] MEDS: SOD FERRIC GLUC COMPLX/SUCROSE 125 MG in SODIUM CHLORIDE 0.9% 100 ML IV SCH (09:21)
[2017-09-13] MEDS: VITAMIN B COMP/VIT C/FOLIC ACID CAPSULE PO SCH (09:21)
[2017-09-13] MEDS: EPOETIN ALFA 10,000 UNITS/ML VIAL SQ SCH (09:21)
[2017-09-13] MEDS: PANTOPRAZOLE SODIUM 80 MG in SODIUM CHLORIDE 0.9% 100 ML IV SCH (10:31)
[2017-09-13] MEDS ORDERED: MANNITOL 25%-12.5 GM/50 ML VIAL IVP PRN (10:45)
[2017-09-13] MEDS ORDERED: ALBUMIN HUMAN 25%-12.5GM/50ML IV BOTTLE IV PRN (10:45)
[2017-09-13 12:00] VITALS: BP 149/69
[2017-09-13] MEDS: LORazepam 2 MG/ML VIAL IVP PRN ×2 (13:00→15:23)
[2017-09-13] MEDS: HydrALAZINE HCL 20 MG/ML VIAL IVP PRN (15:23)
[2017-09-13 16:00] VITALS: BP 154/69
[2017-09-13] MEDS ORDERED: METOPROLOL TARTRATE 25 MG TABLET PO ONE (16:15)
[2017-09-13 16:21] LABS: ABG A-A DIFF O2 457.7 mmHg (10-20.0); ABG BASE EXCESS 0.5 mmol/L (-2.0-3.0); ABG CARBOXYHEMOGLOBIN 0.6 % (0.0-1.5); ABG METHEMOGLOBIN 0.4 % (0.0-1.5); ABG OXYGEN CONTENT 12.8 mL/dL (15.0-23.0); ABG OXYGEN SATURATION 99.8 % (95.0-98.0); ABG OXYHEMOGLOBIN 98.8 % (94.0-100.0); ABG PCO2 37 mmHg (35-45); ABG TOTAL HEMOGLOBIN 8.8 G/dL (12.0-18.0); PO2, ARTERIAL BG 218.5 mmHg (79.0-87.0); SITE, BLOOD GAS RT RADIAL; SOURCE, BLOOD GAS ARTERIAL; TEMPERATURE, FAHRENHEIT, BG 98.5 FAHREN (96.0-98.6)
[2017-09-13 16:22] LABS: O2 DEVICE,BLOOD GAS NON REBREATHER (ROOM AIR)
[2017-09-13] MEDS ORDERED: HEPARIN SODIUM,PORCINE 5,000 UNITS/ML VIAL SQ ONE (16:47)
[2017-09-13] MEDS ORDERED: ALBUMIN HUMAN 25%-12.5GM/50ML IV BOTTLE IV ONE (16:48)
[2017-09-13] MEDS: INSULIN REGULAR, HUMAN 100 UNITS/ML SQ PRN (17:22)
[2017-09-13 17:57] LABS: GLUCOSE,POINT OF CARE 148 MG/DL (70-110)
[2017-09-13 19:35] LABS: ABG A-A DIFF O2 213.6 mmHg (10-20.0); ABG BASE EXCESS -0.3 mmol/L (-2.0-3.0); ABG CARBOXYHEMOGLOBIN 0.5 % (0.0-1.5); ABG HCO3 24.4 mmol/L (22.0-26.0); ABG METHEMOGLOBIN 0.2 % (0.0-1.5); ABG OXYGEN CONTENT 12.5 mL/dL (15.0-23.0); ABG OXYGEN SATURATION 97.8 % (95.0-98.0); ABG OXYHEMOGLOBIN 97.1 % (94.0-100.0); ABG PCO2 36 mmHg (35-45); ABG PH 7.438 (7.35-7.450); PO2, ARTERIAL BG 102.3 mmHg (79.0-87.0); SOURCE, BLOOD GAS ARTERIAL; TEMPERATURE, FAHRENHEIT, BG 98.6 FAHREN (96.0-98.6)
[2017-09-13 19:36] LABS: O2 DEVICE,BLOOD GAS BIPAP (ROOM AIR); SITE, BLOOD GAS RT RADIAL
[2017-09-13 20:00] VITALS: BP 128/68
[2017-09-13] MEDS: PANTOPRAZOLE SODIUM 40 MG/VIAL IVP SCH (21:26)
[2017-09-13] MEDS: METOPROLOL TARTRATE 25 MG TABLET PO SCH (21:26)
[2017-09-14] VITALS: BP 150/67
[2017-09-14] MEDS: AMPICILLIN SODIUM/SULBACTAM NA 3 GM in SODIUM CHLORIDE 0.9% 100 ML IV SCH ×2 (03:40→15:19)
[2017-09-14] MEDS ORDERED: SODIUM CHLORIDE 0.9% 100 ML ONE ×2 (03:44→23:43)
[2017-09-14 04:00] VITALS: BP 162/71
[2017-09-14 04:42] LABS: BASOPHILS % (AUTO) 0.3 % (0.0-2.0); EOSINOPHILS % (AUTO) 3.1 % (1.0-6.0); HEMOGLOBIN 7.4 g/dL (13.5-17.5); LYMPHOCYTES # (AUTO) 0.4 K/uL (1.0-4.8); LYMPHOCYTES % (AUTO) 3.1 % (22.0-44.0); MEAN CORPUSCULAR HEMOGLOBIN 28.6 pg (26.0-34.0); MEAN CORPUSCULAR HGB CONC 33.7 G/dL (31.0-37.0); MEAN CORPUSCULAR VOLUME 85 fL (80-100); MONOCYTES # (AUTO) 0.9 K/uL (0.1-1.0); NEUTROPHILS # (AUTO) 11.3 K/uL (1.8-7.7); PLATELET COUNT (AUTO) 197 K/uL (150-450); RED BLOOD CELL COUNT(AUTO) 2.59 MIL/uL (4.50-5.90); RED CELL DISTRIBUTION WIDTH 15.9 % (11.5-14.5)
[2017-09-14 04:44] LABS: NEUTROPHILS % (AUTO) 86.5 % (40.0-70.0)
[2017-09-14 04:54] LABS: CALCIUM, TOTAL 8.4 mg/dL (8.8-10.5); CREATININE 1.7 mg/dL (0.60-1.30); MAGNESIUM 1.6 mg/dL (1.80-2.40); PHOSPHORUS 3.7 mg/dL (2.5-4.9); POTASSIUM 3.5 mmol/L (3.5-5.1)
[2017-09-14 06:53] LABS: GLUCOSE,POINT OF CARE 113 MG/DL (70-110)
[2017-09-14 06:53] LABS: GLUCOSE,POINT OF CARE 82 MG/DL (70-110)
[2017-09-14] MEDS: ALBUTEROL SULFATE 2.5 MG/0.5 ML NEB SOLUTION NEB PRN (07:39)
[2017-09-14] MEDS: IPRATROPIUM BROMIDE 0.5 MG/2.5 ML NEB SOLUTION NEB PRN (07:39)
[2017-09-14] MEDS: LORazepam 2 MG/ML VIAL IVP PRN ×2 (07:40→17:56)
[2017-09-14 08:00] VITALS: BP 162/76
[2017-09-14 08:46] LABS: ABG A-A DIFF O2 95.7 mmHg (10-20.0); ABG BASE EXCESS -0.2 mmol/L (-2.0-3.0); ABG CARBOXYHEMOGLOBIN 0.5 % (0.0-1.5); ABG HCO3 24.2 mmol/L (22.0-26.0); ABG METHEMOGLOBIN 0.3 % (0.0-1.5); ABG OXYGEN CONTENT 13.5 mL/dL (15.0-23.0); ABG OXYGEN SATURATION 93.5 % (95.0-98.0); ABG OXYHEMOGLOBIN 92.8 % (94.0-100.0); ABG PCO2 41 mmHg (35-45); ABG PH 7.396 (7.35-7.450); ABG TOTAL HEMOGLOBIN 10.3 G/dL (12.0-18.0); PO2, ARTERIAL BG 70.1 mmHg (79.0-87.0); SOURCE, BLOOD GAS ARTERIAL; TEMPERATURE, FAHRENHEIT, BG 98.4 FAHREN (96.0-98.6)
[2017-09-14 08:47] LABS: O2 DEVICE,BLOOD GAS BIPAP (ROOM AIR); SITE, BLOOD GAS RT RADIAL
[2017-09-14] MEDS: PANTOPRAZOLE SODIUM 40 MG/VIAL IVP SCH ×2 (09:00→21:14)
[2017-09-14] MEDS: METOPROLOL TARTRATE 25 MG TABLET PO SCH ×2 (09:01→21:14)
[2017-09-14] MEDS: VITAMIN B COMP/VIT C/FOLIC ACID CAPSULE PO SCH (09:01)
[2017-09-14] MEDS: SOD FERRIC GLUC COMPLX/SUCROSE 125 MG in SODIUM CHLORIDE 0.9% 100 ML IV SCH (09:01)
[2017-09-14] MEDS ORDERED: EPOETIN ALFA 10,000 UNITS/ML 2 ML VIAL SQ PRN (11:30)
[2017-09-14 12:00] VITALS: BP 152/73
[2017-09-14 12:17] LABS: GLUCOSE,POINT OF CARE 133 MG/DL (70-110)
[2017-09-14] MEDS: IPRATROPIUM BROMIDE 0.5 MG/2.5 ML NEB SOLUTION NEB SCH ×2 (13:54→19:59)
[2017-09-14] MEDS: ALBUTEROL SULFATE 2.5 MG/0.5 ML NEB SOLUTION NEB SCH ×2 (13:54→19:59)
[2017-09-14 16:00] VITALS: BP 154/70
[2017-09-14] MEDS: INSULIN REGULAR, HUMAN 100 UNITS/ML SQ PRN (18:17)
[2017-09-14] MEDS: HydrALAZINE HCL 20 MG/ML VIAL IVP PRN (18:21)
[2017-09-14 18:23] LABS: GLUCOSE,POINT OF CARE 186 MG/DL (70-110)
[2017-09-14 20:00] VITALS: BP 160/70
[2017-09-15] VITALS (7 sets, daily range): BP systolic 122–173; BP diastolic 53–82
[2017-09-15] MEDS ORDERED: SODIUM CHLORIDE 0.9% 100 ML ONE (00:39)
[2017-09-15] MEDS: HydrALAZINE HCL 20 MG/ML VIAL IVP PRN (00:43)
[2017-09-15] MEDS: IPRATROPIUM BROMIDE 0.5 MG/2.5 ML NEB SOLUTION NEB SCH ×4 (01:33→19:37)
[2017-09-15] MEDS: ALBUTEROL SULFATE 2.5 MG/0.5 ML NEB SOLUTION NEB SCH ×4 (01:33→19:37)
[2017-09-15] MEDS: AMPICILLIN SODIUM/SULBACTAM NA 3 GM in SODIUM CHLORIDE 0.9% 100 ML IV SCH ×2 (02:41→14:42)
[2017-09-15 05:32] LABS: BASOPHILS % (AUTO) 0.4 % (0.0-2.0); EOSINOPHILS % (AUTO) 3.1 % (1.0-6.0); HEMATOCRIT 22.5 % (41-53); HEMOGLOBIN 7.5 g/dL (13.5-17.5); LYMPHOCYTES # (AUTO) 0.4 K/uL (1.0-4.8); LYMPHOCYTES % (AUTO) 2.7 % (22.0-44.0); MEAN CORPUSCULAR HEMOGLOBIN 28.8 pg (26.0-34.0); MEAN CORPUSCULAR HGB CONC 33.5 G/dL (31.0-37.0); MEAN CORPUSCULAR VOLUME 86 fL (80-100); MONOCYTES # (AUTO) 1.2 K/uL (0.1-1.0); MONOCYTES % (AUTO) 7.5 % (2.0-9.0); NEUTROPHILS # (AUTO) 14.3 K/uL (1.8-7.7); PLATELET COUNT (AUTO) 209 K/uL (150-450); RED BLOOD CELL COUNT(AUTO) 2.62 MIL/uL (4.50-5.90); RED CELL DISTRIBUTION WIDTH 16.1 % (11.5-14.5)
[2017-09-15 05:38] LABS: NEUTROPHILS % (AUTO) 86.3 % (40.0-70.0)
[2017-09-15 05:49] LABS: CALCIUM, TOTAL 8.4 mg/dL (8.8-10.5); CREATININE 2.37 mg/dL (0.60-1.30); MAGNESIUM 1.7 mg/dL (1.80-2.40); PHOSPHORUS 3.9 mg/dL (2.5-4.9); POTASSIUM 3.3 mmol/L (3.5-5.1)
[2017-09-15] MEDS: LORazepam 2 MG/ML VIAL IVP PRN ×3 (06:18→23:51)
[2017-09-15] MEDS: INSULIN REGULAR, HUMAN 100 UNITS/ML SQ PRN ×2 (07:43→13:08)
[2017-09-15] MEDS ORDERED: [UNRECOGNIZED DRUG - OTHER] MISC SCH (09:00)
[2017-09-15] MEDS: PANTOPRAZOLE SODIUM 40 MG/VIAL IVP SCH ×2 (09:26→09:34)
[2017-09-15] MEDS: METOPROLOL TARTRATE 25 MG TABLET PO SCH ×2 (09:26→09:34)
[2017-09-15] MEDS: VITAMIN B COMP/VIT C/FOLIC ACID CAPSULE PO SCH (09:34)
[2017-09-15] MEDS: SOD FERRIC GLUC COMPLX/SUCROSE 125 MG in SODIUM CHLORIDE 0.9% 100 ML IV SCH (10:46)
[2017-09-15] MEDS ORDERED: MAGNESIUM SULFATE 2 GM in DEXTROSE 5%-WATER 50 ML IV ONE (11:00)
[2017-09-15 12:03] LABS: GLUCOSE,POINT OF CARE 109 MG/DL (70-110)
[2017-09-15 12:03] LABS: GLUCOSE,POINT OF CARE 173 MG/DL (70-110)
[2017-09-15] MEDS: ACETAMINOPHEN 650 MG/20.3 ML SOLUTION UDCUP GT PRN ×2 (15:11→23:52)
[2017-09-15] MEDS: ALBUTEROL SULFATE 2.5 MG/0.5 ML NEB SOLUTION NEB PRN (22:07)
[2017-09-15] MEDS: IPRATROPIUM BROMIDE 0.5 MG/2.5 ML NEB SOLUTION NEB PRN (22:07)
[2017-09-16 00:18] LABS: GLUCOSE,POINT OF CARE 180 MG/DL (70-110)
[2017-09-16 00:18] LABS: GLUCOSE,POINT OF CARE 101 MG/DL (70-110)
[2017-09-16 13:08] LABS: GLUCOMETER DEV NAME(LOC) 5N 2S; GLUCOSE,POINT OF CARE 162 MG/DL (70-110)
== END 2017-09-16 02:45 | disposition expired | DRG 870 ==
LOC: EMS 14:50 → ICU 18:23 → 5S 09-15 18:15
PROVIDERS: ADMIT Internal Medicine Geriatric Medicine; ATTEND Internal Medicine Geriatric Medicine
PROC: 5A1955Z Respiratory Ventilation, Greater than 96 Consecutive Hours (ICD-10-PCS; principal; 2017-09-07)
PROC: 0BH17EZ Insertion of Endotracheal Airway into Trachea, Via Natural or Artificial Opening (ICD-10-PCS; 2017-09-07)
PROC: 30233N1 Transfusion of Nonautologous Red Blood Cells into Peripheral Vein, Percutaneous Approach (ICD-10-PCS; 2017-09-07)
PROC: 5A09357 Assistance with Respiratory Ventilation, Less than 24 Consecutive Hours, Continuous Positive Airway Pressure (ICD-10-PCS; 2017-09-07)
PROC: 02HV33Z Insertion of Infusion Device into Superior Vena Cava, Percutaneous Approach (ICD-10-PCS; 2017-09-07)
PROC: 5A1D70Z Performance of Urinary Filtration, Intermittent, Less than 6 Hours Per Day (ICD-10-PCS; 2017-09-08)
PROC: 0DJ08ZZ Inspection of Upper Intestinal Tract, Via Natural or Artificial Opening Endoscopic (ICD-10-PCS; 2017-09-09)
PROC: 5A1D70Z Performance of Urinary Filtration, Intermittent, Less than 6 Hours Per Day (ICD-10-PCS; 2017-09-10)
PROC: 5A09457 Assistance with Respiratory Ventilation, 24-96 Consecutive Hours, Continuous Positive Airway Pressure (ICD-10-PCS; 2017-09-13)
PROC: 5A1D70Z Performance of Urinary Filtration, Intermittent, Less than 6 Hours Per Day (ICD-10-PCS; 2017-09-13)
PROC: 5A1D70Z Performance of Urinary Filtration, Intermittent, Less than 6 Hours Per Day (ICD-10-PCS; 2017-09-15)
DX: A41.9 Sepsis, unspecified organism (principal); J96.01 Acute respiratory failure with hypoxia; J69.0 Pneumonitis due to inhalation of food and vomit; I13.2 Hypertensive heart and chronic kidney disease with heart failure and with stage 5 chronic kidney disease, or end stage renal disease; N18.6 End stage renal disease; K26.4 Chronic or unspecified duodenal ulcer with hemorrhage; E87.2 Acidosis; I50.30 Unspecified diastolic (congestive) heart failure; E78.5 Hyperlipidemia, unspecified; D64.9 Anemia, unspecified; E11.22 Type 2 diabetes mellitus with diabetic chronic kidney disease; E83.42 Hypomagnesemia; E87.6 Hypokalemia; K29.70 Gastritis, unspecified, without bleeding; K29.80 Duodenitis without bleeding; R59.0 Localized enlarged lymph nodes; Z66 Do not resuscitate; M10.9 Gout, unspecified; Z93.1 Gastrostomy status; Z99.2 Dependence on renal dialysis; Z79.899 Other long term (current) drug therapy
CPT/HCPCS: 71250; 82270; 82271; 82306; 82607; 82746; 82805; 83036; 83540; 83550; 83605; 83735; 84100; 84145; 84439; 84443; 85007; 85014; 85018; 86850; 86900; 86901; 86920; 87040; 87070; 87081; 87205; 87324; 87340; 87449; 90935; 93005; 93306; 93970; 94002; 94003; 94640; 94660; 96365; 96375; 99291; C9113; J0295; J0330; J0360; J0885; J1644; J1815; J2060; J2150; J2543; J2704; J2916; J3370; J3475; J3490; J7030; J7050; J7060; P9016; P9047